=== PATIENT | male | born 1955 | race Asian ===

== ENCOUNTER 2018-05-12 07:18 | Day surgery (SDC) | payer OTHER ==
[2018-05-11 17:25] VITALS: Ht 168.9 cm; Wt 135.0 kg
[2018-05-12] VITALS (11 sets, daily range): BP systolic 114–142; BP diastolic 59–70; PULSE 68–84; RESP 12–19
[~2018-05-12] VITALS: Ht 168.9 cm; Wt 135.0 kg
[~2018-05-12 07:18] MED LIST: DESFLURANE 15 MIN ONE
[2018-05-12] MEDS ORDERED: CEFAZOLIN 2 GM/50 ML (PMX) 50 ML IVPB ONE (09:00)
[2018-05-12] MEDS ORDERED: SOD CHLORIDE 0.9% 1,000 ML IV SCH (09:00)
[2018-05-12] MEDS ORDERED: AMLO5TAB4 PO (09:17)
[2018-05-12] MEDS ORDERED: BUPIVACAINE 0.25% (MPF) 30 ML INJ ONE (10:20)
--- NOTE | 2018-05-12 10:38 | PREAC ---
Date/Time of Note Date/Time of Note DATE: 05/12/18 TIME: 10:36 Anesthesia Eval and Record Evaluation Time Pre-Procedure Interview DATE: 05/12/18 TIME: 10:36 Age 62 Sex male NPO: 8 hrs Preoperative diagnosis CHEST WALL MASS Planned procedure EXCISION CHEST WALL MASS Past Medical History Past Medical History: Includes Cardio: HTN, Dyslipidemia Renal: BPH Surgery & Anesthesia Issues No known issue Meds Anticoagulation: No Beta Jimmy within 24 hr: No Reason Beta Jimmy not given: Pt. not on B-Jimmy Reported Medications Amlodipine Besylate* (Norvasc*) 5 Mg Tablet, 5 MG PO DAILY, TAB 05/12/18 Current Medications Sodium Chloride 1,000 ml @ 75 mls/hr [id number] IV ; Start 05/12/18 at 09:00; Stop 05/12/18 at 22:19 Meds reviewed: Yes Allergies Coded Allergies: No Known Drug Allergies (Unverified Allergy, Unknown, 05/12/18) Allergies Reviewed: Yes Labs/Studies Labs Reviewed: Reviewed by anesthesiologist test: N/A Studies: ECG (NL), CXR (DIFFUSE HYPEROSTOSIS) Pre-procedure Exam Last vitals Vital Signs Date Temp Pulse Resp B/P (MAP) Pulse Ox O2 O2 Flow FiO2 Time Delivery Rate 05/12/18 97.9 68 16 142/70 100 Room Air 09:44 (94) Airway: Adequate mouth opening, Adequate thyromental dist Mallampati: Mallampati II Teeth: Normal Lung: Normal Heart: Normal ASA Physical Status ASA physical status: 2 Emergency: None Planned Anesthetic General/MAC: LMA Planned Pain Management Parenteral pain med Pre-operative Attestations Prior to commencing anesthesia and surgery, the patient was re-evaluated, there was verification of: *The patient's identity *The results of appropriate recent lab work and preoperative vital signs *The above evaluation not changing prior to induction *Anesthetic plan, risk benefits, alternative and complications discussed with patient/family; questions answered; patient/family understands, accepts and wishes to proceed. Edinson Horton M.D. May 12, 2018 10:38
[2018-05-12] MEDS ORDERED: CEFAZOLIN 1 GM INJ ONE (10:40)
[2018-05-12] MEDS ORDERED: PROPOFOL 20 ML ONE (10:40)
[2018-05-12] MEDS ORDERED: NEOSTIGMINE 3 MG/3 ML SYRINGE ONE (10:40)
[2018-05-12] MEDS ORDERED: GLYCOPYRROLATE 0.4 MG INJ ONE (10:40)
[2018-05-12] MEDS ORDERED: ROCURONIUM 50 MG INJ ONE (10:40)
[2018-05-12] MEDS ORDERED: FENTAnyl 50 MCG/ML VIAL ONE (10:42)
[2018-05-12] MEDS ORDERED: MIDAZOLAM 1 MG/ML 2 ML INJ ONE (10:42)
[2018-05-12] MEDS ORDERED: ONDANSETRON 4 MG INJ ONE (10:42)
[2018-05-12] MEDS ORDERED: KETOROLAC 30 MG INJ ONE (10:53)
[2018-05-12] MEDS ORDERED: MIDAZOLAM 1 MG/ML 2 ML INJ IV PRN (11:00)
[2018-05-12] MEDS ORDERED: HYDROmorphONE 1 MG/5 ML IV SYRINGE IV PRN ×3 (11:00)
[2018-05-12] MEDS ORDERED: ALBUTEROL 0.083% (NEB) 2.5 MG/3 ML AMP HHN PRN (11:00)
[2018-05-12] MEDS ORDERED: TRIMETHOBENZAMIDE 100 MG/ML VIAL IM PRN (11:00)
[2018-05-12] MEDS ORDERED: EPHEDrine SULFATE 50 MG/5 ML SYG IV PRN (11:00)
[2018-05-12] MEDS ORDERED: hydrALAzine 20 MG INJ IV PRN (11:00)
[2018-05-12] MEDS ORDERED: IPRATROPIUM (NEB) 0.5 MG/2.5 ML AMP HHN PRN (11:00)
[2018-05-12] MEDS ORDERED: FENTAnyl 50 MCG/ML VIAL IV PRN ×3 (11:00)
[2018-05-12] MEDS ORDERED: ONDANSETRON 4 MG INJ IV PRN (11:00)
[2018-05-12] MEDS ORDERED: MEPERIDINE 25 MG INJ IV PRN (11:00)
[2018-05-12] MEDS ORDERED: DIPHENHYDRAMINE 50 MG INJ IV PRN (11:00)
[2018-05-12] MEDS ORDERED: OXYCODONE/ACETAMINOPHEN (5/325) TAB PO PRN ×2 (11:00)
[2018-05-12] MEDS ORDERED: LABETALOL HCL 20MG INJ IV PRN (11:00)
--- NOTE | 2018-05-12 11:18 | OPR ---
Date/Time of Note Date/Time of Note DATE: 05/12/18 TIME: 11:16 Operative Report Procedure Date: May 12, 2018 Preoperative Diagnosis chest mass Postoperative Diagnosis same Operation/Procedure Performed 1. excision of chest mass 12 cm x 4 cm mass 2. localized adjacent tissue transfer with the use of skin flaps 48 sq cm defect of the chest 3. therapeutic injection of subcutaneous tissues with local anesthesia Surgeon see signature line Stonemason Helper none Anesthesia Type: general Estimated Blood Loss: 10 - 50 ml's Transfusion none Specimen chest mass Grafts/Implants none Complications none Pt Condition Post Procedure: stable Indications This is a 62-year-old male with a very large progressively enlarging chest mass. He has had this for some time. He requires surgical excision. Patient is mo rbidly obese with a BMI of 47.3. Risks alternatives benefits and percent were discussed the patient. Potential complications including but not limited to bleeding infection wound dehiscence need for additional surgeries and possible recurrence of mass were discussed with the patient. Patient expresses understanding and consents to the operation. Procedure Description Patient is taken to the OR and prepped and draped in usual sterile fashion. Surgical time was performed. IV antibiotics were given. Elliptical incision was made with a 15 blade encompassing the whole mass. Dissection with cautery was carried onto the pectoralis muscular fascial layer. The mass was circumferentially excised with cautery. Good hemostasis established. A large tissue defect remained. Localized adjacent tissue transfer with these of skin flaps was performed. The skin flaps were extended all the way extensively laterally due to large tissue defect. After hemostasis was established the skin flaps were then reapproximated with interrupted #1 Vicryl. The skin was closed with skin diana. 20 cc of subcutaneous local anesthesia was injected at the incision site. Dry dressings were applied. Augusto GUNTER May 12, 2018 11:18
[2018-05-12] MEDS ORDERED: HYDROCODONE/APAP (5/325) TAB PO ONE (11:30)
--- NOTE | 2018-05-12 11:46 | PAC ---
Date/Time of Note Date/Time of Note DATE: 05/12/18 TIME: 11:46 Post-Anesthesia Notes Post-Anesthesia Note Last documented vital signs Vital Signs Date Temp Pulse Resp B/P (MAP) Pulse Ox O2 O2 Flow FiO2 Time Delivery Rate 05/12/18 97.9 68 16 142/70 100 Room Air 11:44 (94) Activity: WNL Respiratory function: WNL Cardiovascular function: WNL Mental status: Baseline Pain reasonably controlled: Yes Hydration appropriate: Yes Nausea/Vomiting absent: Yes Edinson Horton M.D. May 12, 2018 11:46
== END 2018-05-12 13:09 | disposition home or self-care (01) ==
LOC: SDS 07:18
PROVIDERS: ATTEND Surgery
DX: D21.3 Benign neoplasm of connective and other soft tissue of thorax (principal); I10 Essential (primary) hypertension; E78.5 Hyperlipidemia, unspecified; N40.0 Benign prostatic hyperplasia without lower urinary tract symptoms
CPT/HCPCS: 14301; J0690; J1885; J2250; J3010; 88307; J2405; J2710